=== PATIENT | female | born 1965 | race Caucasian/White ===

== ENCOUNTER 2017-06-19 22:05 | Observation (INO) | payer OTHER ==
[~2017-06-19] VITALS: Ht 152.4 cm; Wt 58.0 kg
[2017-06-19 22:10] VITALS: BP 110/68; PULSE 78; RESP 20; O2SAT 100
--- NOTE | 2017-06-19 22:26 | PD ---
HPI Chief Complaint: Chest Pain Time Seen by Provider: 22:22 Travel History International Travel<30 days: No Contact w/Intl Traveler<30days: No History of Present Illness HPI 51-year-old female patient with previous history of anxiety, presents to the ER today because she started having intermittent episodes of sharp chest pains lasting a few minutes at a time and then going away this evening. She states it is substernal, without radiation. She denies any nausea, abdominal pain, vomiting, fevers, shortness of breath, or any other symptoms. She states it feels different than anxiety attacks that she has had before. Modifying Factors: None Associated Signs & Symptoms: Substernal chest pains, intermittent Risk Factors: None PFSH Social History Tobacco Use: No Allergies-Medications (Allergen,Severity, Reaction): Coded Allergies: Penicillins (Verified Adverse Reaction, Unknown, Nausea/Vomiting, 06/19/17) Review of Systems Except as stated in HPI: all other systems reviewed are Neg Physical Exam Narrative GENERAL: Well-developed middle-aged female patient currently in mild distress. Awake and oriented 3. SKIN: Focused skin assessment warm/dry. HEAD: Atraumatic. Normocephalic. EYES: Pupils equal and round. No scleral icterus. No injection or drainage. ENT: No nasal bleeding or discharge. Mucous membranes pink and moist. NECK: Trachea midline. No JVD. Supple. CARDIOVASCULAR: Regular rate and rhythm. No murmur appreciated. Pulses are present and equal bilaterally. RESPIRATORY: No accessory muscle use. Clear to auscultation. Breath sounds equal bilaterally. GASTROINTESTINAL: Abdomen soft, non-tender, nondistended. Hepatic and splenic margins not palpable. MUSCULOSKELETAL: No obvious deformities. No clubbing. No cyanosis. No edema. NEUROLOGICAL: Awake and alert. No obvious cranial nerve deficits. Motor grossly within normal limits. Normal speech. PSYCHIATRIC: Appropriate mood and affect; insight and judgment normal. Data Data Last Documented VS Vital Signs Date Time Temp Pulse Resp B/P (MAP) Pulse Ox O2 Delivery O2 Flow Rate FiO2 06/19/17 22:56 20 100 06/19/17 22:54 Nasal Cannula 2.00 06/19/17 22:54 70 107/63 (78) Orders Orders Electrocardiogram (06/19/17 22:22) Ckmb (Isoenzyme) Profile (06/19/17 22:22) Complete Blood Count With Diff (06/19/17 22:22) Comprehensive Metabolic Panel (06/19/17 22:22) D-Dimer (06/19/17 22:22) Magnesium (Mg) (06/19/17 22:22) Prothrombin Time / Inr (Pt) (06/19/17 22:22) Act Partial Throm Time (Ptt) (06/19/17 22:22) Troponin I (06/19/17 22:22) Ecg Monitoring (06/19/17 22:22) Bilateral Bp Monitoring (06/19/17 22:22) Iv Access Insert/Monitor (06/19/17 22:22) Oximetry (06/19/17 22:22) Oxygen Administration (06/19/17 22:22) Chest, Pa & Lat (06/19/17 22:22) Aspirin (Aspirin) (06/19/17 22:45) Nitroglycerin 2% Oint (Nitroglycerin 2% (06/19/17 22:45) CKMB (06/19/17 22:30) CKMB% (06/19/17 22:30) Ketorolac Inj (Toradol Inj) (06/19/17 23:15) Ondansetron Inj (Zofran Inj) (06/19/17 23:15) Morphine Inj (Morphine Inj) (06/19/17 23:15) Sodium Chlorid 0.9% 500 Ml Inj (Ns 500 M (06/19/17 23:15) Labs Laboratory Tests Test 06/19/17 22:30 White Blood Count 6.0 TH/MM3 Red Blood Count 4.23 MIL/MM3 Hemoglobin 12.6 GM/DL Hematocrit 37.8 % Mean Corpuscular Volume 89.5 FL Mean Corpuscular Hemoglobin 29.9 PG Mean Corpuscular Hemoglobin Concent 33.4 % Red Cell Distribution Width 12.7 % Platelet Count 210 TH/MM3 Mean Platelet Volume 8.6 FL Neutrophils (%) (Auto) 49.1 % Lymphocytes (%) (Auto) 39.8 % Monocytes (%) (Auto) 7.0 % Eosinophils (%) (Auto) 3.4 % Basophils (%) (Auto) 0.7 % Neutrophils # (Auto) 3.0 TH/MM3 Lymphocytes # (Auto) 2.4 TH/MM3 Monocytes # (Auto) 0.4 TH/MM3 Eosinophils # (Auto) 0.2 TH/MM3 Basophils # (Auto) 0.0 TH/MM3 CBC Comment DIFF FINAL Differential Comment Blood Urea Nitrogen 12 MG/DL Creatinine 0.67 MG/DL Random Glucose 89 MG/DL Total Protein 7.2 GM/DL Albumin 3.9 GM/DL Calcium Level 9.0 MG/DL Magnesium Level 1.9 MG/DL Alkaline Phosphatase 61 U/L Aspartate Amino Transf (AST/SGOT) 24 U/L Alanine Aminotransferase (ALT/SGPT) 17 U/L Total Bilirubin 0.4 MG/DL Sodium Level 139 MEQ/L Potassium Level 3.3 MEQ/L Chloride Level 103 MEQ/L Carbon Dioxide Level 27.3 MEQ/L Anion Gap 9 MEQ/L Estimat Glomerular Filtration Rate 93 ML/MIN Total Creatine Kinase 103 U/L Creatine Kinase MB 0.8 NG/ML Troponin I LESS THAN 0.02 NG/ML MDM Medical Decision Making Medical Screen Exam Complete: Yes Emergency Medical Condition: Yes Medical Record Reviewed: Yes Interpretation(s) EKG shows NSR, no ST elevation or depression, and no arrhythmias. No significant T-wave inversions. Laboratory Tests Test 06/19/17 22:30 Potassium Level 3.3 MEQ/L (3.5-5.1) Troponin I LESS THAN 0.02 NG/ML Last 24 hours Impressions Chest X-Ray 06/19/172 Signed Impressions: Service Date/Time: Monday, June 19, 2017 22:38 - CONCLUSION: No acute disease. Ronal Styles MD Differential Diagnosis Anxiety attack versus dysrhythmias versus ACS Narrative Course Patient was given aspirin and nitroglycerin in the ER. Chest x-ray and cardiac enzymes are negative. I did not see any signs of dysrhythmias while she was in the ER. Physician Communication Physician Communication Case is signed out at [address] Spangler pending d-dimer and reevaluation. Diagnosis Primary Impression: Atypical chest pain Lupe Cisneros MD Jun 19, 2017 22:26
[2017-06-19 22:35] LABS: BASOPHIL % 0.7 % (0.0-2.0); EOSINOPHIL # 0.2 TH/MM3 (0-0.4); EOSINOPHIL % 3.4 % (0.0-4.0); HEMATOCRIT 37.8 % (35.0-46.0); HEMOGLOBIN 12.6 GM/DL (11.6-15.3); LYMPH % 39.8 % (9.0-44.0); LYMPHOCYTE # 2.4 TH/MM3 (1.0-4.8); MEAN CELL VOLUME 89.5 FL (80.0-100.0); MEAN CORPUSCULAR HEMOGLOBIN 29.9 PG (27.0-34.0); MEAN CORPUSCULAR HGB CONC 33.4 % (32.0-36.0); MEAN PLATELET VOLUME 8.6 FL (7.0-11.0); MONOCYTE # 0.4 TH/MM3 (0-0.9); NEUT % 49.1 % (16.0-70.0); PLATELET COUNT 210 TH/MM3 (150-450); RED BLOOD COUNT 4.23 MIL/MM3 (4.00-5.30); RED CELL DISTRIBUTION WIDTH 12.7 % (11.6-17.2)
[2017-06-19 22:44] LABS: CHLORIDE 103 MEQ/L (98-107); SODIUM (NA) 139 MEQ/L (136-145)
[2017-06-19 22:45] VITALS: BP_SYST 107; BP_SYST 124; BP_DIAS 63; PULSE 66; RESP 20; O2SAT 99
[2017-06-19] MEDS ORDERED: ASPIRIN 325 MG TAB PO ONE (22:45)
[2017-06-19] MEDS ORDERED: NITROGLYCERIN 2% OINT 1 GM PACKET TOPICAL ONE (22:45)
[2017-06-19 22:48] LABS: ALBUMIN 3.9 GM/DL (3.4-5.0); BICARBONATE 27.3 MEQ/L (21.0-32.0); BLOOD UREA NITROGEN 12 MG/DL (7-18); GLUCOSE,RANDOM 89 MG/DL (74-106); MAGNESIUM 1.9 MG/DL (1.5-2.5)
[2017-06-19 22:51] LABS: ALT (GPT) 17 U/L (10-53); AST (GOT) 24 U/L (15-37); CREATININE 0.67 MG/DL (0.50-1.00); GLOMERULAR FILTRATION RATE 93 ML/MIN (>89)
[2017-06-19 22:53] LABS: TOTAL BILIRUBIN ADULT 0.4 MG/DL (0.2-1.0); TOTAL PROTEIN 7.2 GM/DL (6.4-8.2)
--- NOTE | 2017-06-19 22:53 | RADRPT ---
EXAM DATE/TIME: 06/19/2017 22:38 [facility] COMPARISON: No previous studies available for comparison. INDICATIONS : Chest pain. MEDICAL HISTORY : None. SURGICAL HISTORY : None. ENCOUNTER: Initial ACUITY: 1 day PAIN SCORE: 7/10 LOCATION: Bilateral chest FINDINGS: PA and lateral views of the chest demonstrate the lungs to be symmetrically aerated without evidence of mass, infiltrate or effusion. The cardiomediastinal contours are unremarkable. Osseous structure s are intact. CONCLUSION: No acute disease. Ronal Styles MD on June 19, 2017 at 22:50 Board Certified Radiologist. This report was verified electronically.
[2017-06-19 22:54] VITALS: BP 107/63; PULSE 70; RESP 20; O2SAT 99
[2017-06-19 22:54] LABS: ALKALINE PHOSPHATASE 61 U/L (45-117)
[2017-06-19 22:56] LABS: TROPONIN I LESS THAN 0.02 NG/ML (0.02-0.05)
--- NOTE | 2017-06-19 23:12 | PD ---
Physical Exam Date Seen by Provider: Jun 19, 2017 Time Seen by Provider: 23:10 Narrative accepted in transfer of care from Dr Cisneros GENERAL: Well-developed well-nourished female in obvious discomfort no respiratory distress SKIN: Warm and dry. HEAD: Normocephalic. EYES: No scleral icterus. No injection or drainage. NECK: Supple, trachea midline. No JVD or lymphadenopathy. CARDIOVASCULAR: Regular rate and rhythm without murmurs, gallops, or rubs. Chest wall: Mild tenderness to direct palpation however does not reproduce pain at presentation. RESPIRATORY: Breath sounds equal bilaterally. No accessory muscle use. Bilateral lung sounds clear to auscultation. GASTROINTESTINAL: Abdomen soft, non-tender, nondistended. MUSCULOSKELETAL: No cyanosis, or edema. Radial and dorsalis pedis pulses 2+ to palpation bilaterally. BACK: Nontender without obvious deformity. No CVA tenderness. Data Data Last Documented VS Vital Signs Date Time Temp Pulse Resp B/P (MAP) Pulse Ox O2 Delivery O2 Flow Rate FiO2 06/20/17 03:13 72 20 87/52 (64) 06/20/17 03:05 100 Nasal Cannula 2.00 Orders Orders Electrocardiogram (06/19/17 22:22) Ckmb (Isoenzyme) Profile (06/19/17 22:22) Complete Blood Count With Diff (06/19/17 22:22) Comprehensive Metabolic Panel (06/19/17 22:22) D-Dimer (06/19/17 22:22) Magnesium (Mg) (06/19/17 22:22) Prothrombin Time / Inr (Pt) (06/19/17 22:22) Act Partial Throm Time (Ptt) (06/19/17 22:22) Troponin I (06/19/17 22:22) Ecg Monitoring (06/19/17 22:22) Bilateral Bp Monitoring (06/19/17 22:22) Iv Access Insert/Monitor (06/19/17 22:22) Oximetry (06/19/17 22:22) Oxygen Administration (06/19/17 22:22) Chest, Pa & Lat (06/19/17 22:22) Aspirin (Aspirin) (06/19/17 22:45) Nitroglycerin 2% Oint (Nitroglycerin 2% (06/19/17 22:45) CKMB (06/19/17 22:30) CKMB% (06/19/17 22:30) Ketorolac Inj (Toradol Inj) (06/19/17 23:15) Ondansetron Inj (Zofran Inj) (06/19/17 23:15) Morphine Inj (Morphine Inj) (06/19/17 23:15) Sodium Chlorid 0.9% 500 Ml Inj (Ns 500 M (06/19/17 23:15) Ct Pulmonary Angiogram (06/20/17 ) Sodium Chlor 0.9% 1000 Ml Inj (Ns 1000 M (06/20/17 00:15) Hydromorphone Pf Inj (Dilaudid Pf Inj) (06/20/17 00:15) Iohexol 350 Inj (Omnipaque 350 Inj) (06/20/17 00:45) Troponin I (06/20/17 01:47) Ckmb (Isoenzyme) Profile (06/20/17 01:47) Electrocardiogram (06/20/17 ) Sodium Chlorid 0.9% 500 Ml Inj (Ns 500 M (06/20/17 02:30) Blood Culture (06/20/17 03:10) Sodium Chlor 0.9% 1000 Ml Inj (Ns 1000 M (06/20/17 03:15) Lactic Acid (06/20/17 03:10) Urinalysis - C+S If Indicated (06/20/17 03:10) Lipase (06/20/17 03:10) Place In Observation (06/20/17 03:31) Activity Bed Rest With Brp (06/20/17 03:31) Vital Signs (Adult) Q4H (06/20/17 03:31) Cardiac Rhythm .As Directed (06/20/17 03:31) Notify Dr: Other .PRN (06/20/17 03:31) Notify Dr. Parameters (06/20/17 03:31) Resp Oxygen Nasal Cannula (06/20/17 ) Ckmb (Isoenzyme) Profile (06/20/17 05:30) Troponin I (06/20/17 05:30) Electrocardiogram (06/20/17 05:30) ^ Obtain (06/20/17 03:31) Sodium Chlor 0.9% 1000 Ml Inj (Ns 1000 M (06/20/17 03:31) Sodium Chloride 0.9% Flush (Ns Flush) (06/20/17 03:45) Sodium Chloride 0.9% Flush (Ns Flush) (06/20/17 09:00) Acetaminophen (Tylenol) (06/20/17 03:45) Acetamin-Hydrocod 325-7.5 Mg ([place] 7.5 (06/20/17 03:45) Ondansetron Inj (Zofran Inj) (06/20/17 03:45) Aspirin (Aspirin) (06/20/17 09:00) Box Spring Maker / Telemetry AARON.Q8H (06/20/17 03:31) Admit Order (Ed Use Only) (06/20/17 ) Box Spring Maker / Telemetry AARON.Q8H (06/20/17 03:35) Diet Heart Healthy (06/20/17 Breakfast) Activity Oob With Assistance (06/20/17 03:35) Notify Dr: Other (06/20/17 03:35) Morphine Inj (Morphine Inj) (06/20/17 03:45) Labs Laboratory Tests Test 06/19/17 22:30 06/20/17 02:25 White Blood Count 6.0 TH/MM3 Red Blood Count 4.23 MIL/MM3 Hemoglobin 12.6 GM/DL Hematocrit 37.8 % Mean Corpuscular Volume 89.5 FL Mean Corpuscular Hemoglobin 29.9 PG Mean Corpuscular Hemoglobin Concent 33.4 % Red Cell Distribution Width 12.7 % Platelet Count 210 TH/MM3 Mean Platelet Volume 8.6 FL Neutrophils (%) (Auto) 49.1 % Lymphocytes (%) (Auto) 39.8 % Monocytes (%) (Auto) 7.0 % Eosinophils (%) (Auto) 3.4 % Basophils (%) (Auto) 0.7 % Neutrophils # (Auto) 3.0 TH/MM3 Lymphocytes # (Auto) 2.4 TH/MM3 Monocytes # (Auto) 0.4 TH/MM3 Eosinophils # (Auto) 0.2 TH/MM3 Basophils # (Auto) 0.0 TH/MM3 CBC Comment DIFF FINAL Differential Comment Prothrombin Time 10.4 SEC Prothromb Time International Ratio 1.0 RATIO Activated Partial Thromboplast Time 22.4 SEC D-Dimer Quantitative (PE/DVT) LESS THAN 0.19 MG/L FEU Blood Urea Nitrogen 12 MG/DL Creatinine 0.67 MG/DL Random Glucose 89 MG/DL Total Protein 7.2 GM/DL Albumin 3.9 GM/DL Calcium Level 9.0 MG/DL Magnesium Level 1.9 MG/DL Alkaline Phosphatase 61 U/L Aspartate Amino Transf (AST/SGOT) 24 U/L Alanine Aminotransferase (ALT/SGPT) 17 U/L Total Bilirubin 0.4 MG/DL Sodium Level 139 MEQ/L Potassium Level 3.3 MEQ/L Chloride Level 103 MEQ/L Carbon Dioxide Level 27.3 MEQ/L Anion Gap 9 MEQ/L Estimat Glomerular Filtration Rate 93 ML/MIN Total Creatine Kinase 103 U/L 82 U/L Creatine Kinase MB 0.8 NG/ML Troponin I LESS THAN 0.02 NG/ML LESS THAN 0.02 NG/ML MDM Medical Record Reviewed: Yes Supervised Visit with CHARMAINE: No Interpretation(s) Last Impressions CT Angiography 06/20/17 0000 Signed Impressions: Service Date/Time: Tuesday, June 20, 2017 00:33 - CONCLUSION: Normal examination. Marc Cross MD Chest X-Ray 06/19/172 Signed Impressions: Service Date/Time: Monday, June 19, 2017 22:38 - CONCLUSION: No acute disease. Ronal Styles MD CBC & BMP Diagram 06/19/17 22:30 Total Protein 7.2, Albumin 3.9, Calcium Level 9.0, Magnesium Level 1.9, Alkaline Phosphatase 61, Aspartate Amino Transf (AST/SGOT) 24, Alanine Aminotransferase (ALT/SGPT) 17, Total Bilirubin 0.4 Vital Signs Date Time Temp Pulse Resp B/P (MAP) Pulse Ox O2 Delivery O2 Flow Rate FiO2 06/20/17 03:13 72 20 87/52 (64) 06/20/17 03:05 68 20 79/55 (63) 100 Nasal Cannula 2.00 06/20/17 02:04 71 20 96/50 (65) 100 06/20/17 01:30 20 06/20/17 01:00 72 20 93/52 (66) 98 06/19/17 23:48 70 20 110/68 (82) 06/19/17 22:56 20 100 06/19/17 22:54 100 Nasal Cannula 2.00 06/19/17 22:54 70 20 107/63 (78) 99 Nasal Cannula 2.00 06/19/17 22:45 66 20 124/63 (83) 99 Nasal Cannula 2.00 107/63 (78) 06/19/17 22:10 78 20 110/68 (82) 100 Differential Diagnosis accepted in transfer of care from Dr Cisneros; please refer to her dictation Narrative Course accepted in transfer of care from Dr Cisneros; follow up labs and admission Patient complaining of 10/10 pain with respiratory effort patient administered 1 dose Toradol 30 mg IV Zofran 4 mg IV morphine sulfate 2 mg IV and a 500 cc bolus of normal saline Patient given additional liter of normal saline pain is improved Patient is uncertain if she wants to stay offered observation admission or to sign out AMA patient is agreeable to second set of cardiac enzymes and EKG Troponin I CK and repeat EKG found in normal range Patient states that she is having recurrent pain and would like to be admitted unclear etiology of pleuritic pain possible viral source pleurisy no rub and soft nontender abdomen without guarding or rebound Lipase added lactic acid added patient's case discussed with medicine nitroglycerin discontinued as additional bolus of normal saline administered Discussed with Dr. Colindres will admit patient for chest pain/atypical chest pain and intractable pain of uncertain etiology Physician Communication Physician Communication discussed with Dr Colindres Diagnosis Primary Impression: Atypical chest pain Additional Impression: Intractable pain Admitting Information Admitting Physician Requests: Observation Ruth Spangler MD Jun 19, 2017 23:12
[2017-06-19] MEDS ORDERED: MORPHINE SULFATE 2 MG/ML SYRINGE IV PUSH ONE (23:15)
[2017-06-19] MEDS ORDERED: SODIUM CHLORID 0.9% 500 ML INJ 500 ML IV ONE (23:15)
[2017-06-19] MEDS ORDERED: KETOROLAC TROMETHAMINE 30 MG/ML (IVP) VIAL IV PUSH ONE (23:15)
[2017-06-19] MEDS ORDERED: ONDANSETRON HCL 4 MG/2 ML VIAL IV PUSH ONE (23:15)
[2017-06-19 23:28] LABS: PROTHROMBIN TIME - PATIENT 10.4 SEC (9.8-11.6)
[2017-06-19 23:35] LABS: D-DIMER LESS THAN 0.19 MG/L FEU (0.00-0.50)
[2017-06-19] MEDS ORDERED: ESCI10TA PO (23:35)
[2017-06-19 23:48] VITALS: BP 110/68; PULSE 70; RESP 20
[2017-06-20] VITALS (12 sets, daily range): BP systolic 76–98; BP diastolic 41–67; PULSE 65–83; RESP 12–20; TEMP 98.1; O2SAT 95–100
[2017-06-20] MEDS ORDERED: HYDROmorphone HCL PF 2 MG/ML VIAL IV PUSH ONE (00:15)
[2017-06-20] MEDS ORDERED: SODIUM CHLOR 0.9% 1000 ML INJ 1,000 ML IV ONE ×2 (00:15→03:15)
[2017-06-20] MEDS ORDERED: IOHEXOL 350 MG/ML 10 ML VIAL (for RAD DIAG) IVCONTRAST ONE (00:45)
--- NOTE | 2017-06-20 01:04 | RADRPT ---
EXAM DATE/TIME: 06/20/2017 00:33 [facility] COMPARISON: No previous studies available for comparison. INDICATIONS : Chest pain. Shortness of breath. IV CONTRAST: 75 cc Omnipaque 350 (iohexol) IV RADIATION DOSE: 6.71 CTDIvol (mGy) MEDICAL HISTORY : None SURGICAL HISTORY : None. ENCOUNTER: Initial ACUITY: 1 day PAIN SCALE: 8/10 LOCATION: Bilateral chest TECHNIQUE: Volumetric scanning of the chest was performed using a pulmonary embolism protocol MIP images were re constructed. Using automated exposure control and adjustment of the mA and/or kV according to patien t size, radiation dose was kept as low as reasonably achievable to obtain optimal diagnostic quality images. DICOM format image data is available electronically for review and comparison. Follow-up recommendations for detected pulmonary nodules are based at a minimum on nodule size and pa tient risk factors according to Fleischner Society Guidelines. FINDINGS: PULMONARY ARTERIES: No filling defects are seen in the pulmonary arteries through the segmental level. LUNGS: There is no consolidation or pneumothorax . No concerning pulmonary nodule is visualized. PLEURAE: There is no pleural thickening or pleural effusion. MEDIASTINUM: There is good visualization of the great vessels of the middle mediastinum. No evidence of mediastin al or hilar adenopathy/mass. MUSCULOSKELETAL: Within normal limits for patient age. MISCELLANEOUS: The visualized upper abdominal organs demonstrate no acute abnormality. CONCLUSION: Normal examination. Marc Cross MD on June 20, 2017 at 0:58 Board Certified Radiologist. This report was verified electronically.
[2017-06-20] MEDS ORDERED: SODIUM CHLORID 0.9% 500 ML INJ 500 ML IV ONE (02:30)
[2017-06-20 02:56] LABS: TROPONIN I LESS THAN 0.02 NG/ML (0.02-0.05)
[2017-06-20] MEDS ORDERED: SODIUM CHLOR 0.9% 1000 ML INJ 1,000 ML IV SCH (03:31)
[2017-06-20] MEDS ORDERED: ONDANSETRON HCL 4 MG/2 ML VIAL IV PUSH PRN (03:45)
[2017-06-20] MEDS ORDERED: MORPHINE SULFATE 2 MG/ML SYRINGE IV PUSH PRN (03:45)
[2017-06-20] MEDS ORDERED: ACETAMINOPHEN 500 MG CPLT PO PRN (03:45)
[2017-06-20] MEDS ORDERED: ACETAMINOPHEN/HYDROcodone 325 MG/7.5 MG TAB PO PRN (03:45)
[2017-06-20] MEDS ORDERED: SODIUM CHLORIDE 0.9% FLUSH 10 ML FLUSH IV FLUSH PRN (03:45)
[2017-06-20 04:10] LABS: BILIRUBIN, URINE NEG (NEG); BLOOD, URINE NEG (NEG); GLUCOSE,URINE NEG (NEG); KETONE, URINE NEG (NEG); NITRITE,URINE NEG (NEG); PH, URINE 6.5 (5.0-8.5); URINE COLOR YELLOW (YELLW/STRAW); URINE LEUKOCYTE ESTERASE NEG (NEG)
[2017-06-20 04:17] LABS: MUCUS URINE OCC /lpf (OCC); SQUAMOUS EPITHELIAL CELL URINE 0-5 /hpf (0-5)
[2017-06-20 04:18] LABS: WBC, URINE 0-2 /hpf (0-5)
[2017-06-20 04:19] LABS: AMORPHOUS SEDIMENT, URINE SMALL; BACTERIA, URINE OCC /hpf
[2017-06-20 06:39] LABS: TROPONIN I LESS THAN 0.02 NG/ML (0.02-0.05)
--- NOTE | 2017-06-20 07:30 | EKG ---
Date Performed: 06/20/2017 Time Performed: 06:21:07 PTAGE: 51 years EKG: Sinus rhythm ARM LEADS REVERSED ATYPICAL ECG PREVIOUS TRACING : 06/20/2017 02.18 DOCTOR: Devan Quinteros Interpretating Date/Time 06/20/2017 07:30:00
--- NOTE | 2017-06-20 07:38 | EKG ---
Date Performed: 06/20/2017 Time Performed: 02:18:55 PTAGE: 51 years EKG: Sinus rhythm NORMAL ECG NO PREVIOUS TRACING DOCTOR: Devan Quinteros Interpretating Date/Time 06/20/2017 07:36:49
--- NOTE | 2017-06-20 08:47 | HHI.HP ---
[facility] No Primary Care Physician Admission Diagnosis Chest pain; intractable pain Diagnoses: (1) Atypical chest pain Diagnosis: Principal Chief Complaint: Chest pain Travel History International Travel<30 Days: No Contact w/Intl Traveler <30 Da: No Traveled to Known Affected Are: No History of Present Illness This is a 51-year-old female patient with a known medical history of anxiety who presented to the ED with complaints of chest pain. Patient states around 8 PM last evening after dinner she developed a midsternal chest pain that did not radiate up her neck back or arm. She characterizes the pain as pressure-like in nature and intermittent coming and going without any known alleviating factors. Patient states that the pain becomes worse with breathing or increase in activity. Patient does admit to associated nausea, denies any associated vomiting, shortness of breath or diaphoresis. She states she has never really had this type of pain before. She does have a history of anxiety attacks in the past. [place] Does not have a primary care physician in place at this time. She denies ever having a history of stress test in the past. Denies any recent illness including fever, chills, cough, abdominal pain, nausea, vomiting, diarrhea dysuria. Family history is not significant for any cardiovascular disease. Denies any history of or present use of tobacco. Patient does admit to increase in life stressors, states she has been moving all of her things in her new home and does admit to increase and anxiety and stress. Review of Systems Constitutional: DENIES: Fatigue, Fever, Weight loss Eyes: DENIES: Blurred vision, Diplopia Respiratory: DENIES: Cough, Sputum production, Shortness of breath Cardiovascular: COMPLAINS OF: Chest pain, DENIES: Palpitations, Lower Extremity Edema Gastrointestinal: DENIES: Abdominal pain Musculoskeletal: DENIES: Joint pain Hematologic/lymphatic: DENIES: Bruising Neurologic: DENIES: Abnormal gait Psychiatric: COMPLAINS OF: Anxiety Except as stated in HPI: all other systems reviewed are Neg Past Family Social History Past Medical History Anxiety Past Surgical History Breast augmentation 2010 Anterior C4 through C7 fusion in 2016. Reported Medications Active Reported Escitalopram (Escitalopram Oxalate) 10 Mg Tab 10 Mg PO DAILY Allergies: Coded Allergies: Penicillins (Verified Adverse Reaction, Unknown, Nausea/Vomiting, 06/19/17) Active Ordered Medications Current Medications Medications (Trade) Dose Ordered Sig/Marina Route Start Time Stop Time Status Last Admin Sodium Chloride 1,000 ml @ 75 mls/hr [id number] IV 06/20/17 03:31 06/20/17 05:32 (NS Flush) 2 ml UNSCH PRN IV FLUSH 06/20/17 03:45 (NS Flush) 2 ml BID IV FLUSH 06/20/17 09:00 (Tylenol) 500 mg Q4H PRN PO 06/20/17 03:45 ([place] 7.5-325 Mg) 1 tab Q4H PRN PO 06/20/17 03:45 (Morphine Inj) 2 mg Q4H PRN IV PUSH 06/20/17 03:45 (Zofran Inj) 4 mg Q6H PRN IV PUSH 06/20/17 03:45 06/20/17 03:57 (Aspirin) 325 mg DAILY PO 06/20/17 09:00 (Lexapro) 10 mg DAILY PO 06/20/17 10:30 Family History Denies any significant family medical history of cardiovascular disease. Social History Denies any current or previous tobacco use, alcohol use or illicit drug use. Physical Exam Vital Signs Vital Signs Date Time Temp Pulse Resp B/P (MAP) Pulse Ox O2 Delivery O2 Flow Rate FiO2 06/20/17 07:28 70 20 92/55 (67) 100 06/20/17 07:12 76 12 92/46 (61) 100 Room Air 06/20/17 07:00 71 16 76/41 (53) 100 Room Air 06/20/17 06:30 70 20 80/50 (60) 99 06/20/17 05:31 83 14 93/50 (64) 100 Room Air 06/20/17 05:00 72 18 82/55 (64) 99 06/20/17 05:00 95 21 06/20/17 04:00 66 20 90/55 (67) 98 06/20/17 03:13 72 20 87/52 (64) 06/20/17 03:05 68 20 79/55 (63) 100 Nasal Cannula 2.00 06/20/17 02:04 71 20 96/50 (65) 100 06/20/17 01:30 20 06/20/17 01:00 72 20 93/52 (66) 98 06/19/17 23:48 70 20 110/68 (82) 06/19/17 22:56 20 100 06/19/17 22:54 100 Nasal Cannula 2.00 06/19/17 22:54 70 20 107/63 (78) 99 Nasal Cannula 2.00 06/19/17 22:45 66 20 124/63 (83) 99 Nasal Cannula 2.00 107/63 (78) 06/19/17 22:10 78 20 110/68 (82) 100 Physical Exam GENERAL: Well-developed, well-nourished patient in NAD. SKIN: Warm and dry. No rash. HEAD: Normocephalic. Atraumatic. EYES: Pupils equal and round. No scleral icterus. No injection or drainage. ENT: No nasal bleeding or discharge. Mucous membranes pink and moist. NECK: Supple. Trachea midline. CARDIOVASCULAR: Regular rate and rhythm. S1, S2 noted. No murmur appreciated. No reproducible chest pain to palpation. RESPIRATORY: No accessory muscle use. Clear to auscultation. Breath sounds equal bilaterally. GASTROINTESTINAL: Abdomen soft, non-tender, nondistended. Normoactive bowel sounds x4. MUSCULOSKELETAL: No obvious deformities. Extremities without clubbing, cyanosis , or edema. NEUROLOGICAL: Awake and alert. No obvious cranial nerve deficits. Motor grossly within normal limits. 5/5 muscle strength in bilateral upper and lower extremities. Normal speech. PSYCHIATRIC: Appropriate mood and affect; insight and judgment normal. Laboratory Laboratory Tests Test 06/19/17 22:30 06/20/17 02:25 06/20/17 03:40 06/20/17 04:00 White Blood Count 6.0 Red Blood Count 4.23 Hemoglobin 12.6 Hematocrit 37.8 Mean Corpuscular Volume 89.5 Mean Corpuscular Hemoglobin 29.9 Mean Corpuscular Hemoglobin Concent 33.4 Red Cell Distribution Width 12.7 Platelet Count 210 Mean Platelet Volume 8.6 Neutrophils (%) (Auto) 49.1 Lymphocytes (%) (Auto) 39.8 Monocytes (%) (Auto) 7.0 Eosinophils (%) (Auto) 3.4 Basophils (%) (Auto) 0.7 Neutrophils # (Auto) 3.0 Lymphocytes # (Auto) 2.4 Monocytes # (Auto) 0.4 Eosinophils # (Auto) 0.2 Basophils # (Auto) 0.0 CBC Comment DIFF FINAL Differential Comment Prothrombin Time 10.4 Prothromb Time International Ratio 1.0 Activated Partial Thromboplast Time 22.4 D-Dimer Quantitative (PE/DVT) LESS THAN 0.19 Blood Urea Nitrogen 12 Creatinine 0.67 Random Glucose 89 Total Protein 7.2 Albumin 3.9 Calcium Level 9.0 Magnesium Level 1.9 Alkaline Phosphatase 61 Aspartate Amino Transf (AST/SGOT) 24 Alanine Aminotransferase (ALT/SGPT) 17 Total Bilirubin 0.4 Sodium Level 139 Potassium Level 3.3 Chloride Level 103 Carbon Dioxide Level 27.3 Anion Gap 9 Estimat Glomerular Filtration Rate 93 Total Creatine Kinase 103 82 Creatine Kinase MB 0.8 Troponin I LESS THAN 0.02 LESS THAN 0.02 Lactic Acid Level 1.4 Lipase 149 Urine Collection Type CLEAN CATCH Urine Color YELLOW Urine Turbidity CLEAR Urine pH 6.5 Urine Specific [place] 1.010 Urine Protein NEG Urine Glucose (UA) NEG Urine Ketones NEG Urine Occult Blood NEG Urine Nitrite NEG Urine Bilirubin NEG Urine Urobilinogen 0.2 Urine Leukocyte Esterase NEG Urine WBC 0-2 Urine Squamous Epithelial Cells 0-5 Urine Amorphous Sediment SMALL Urine Bacteria OCC Urine Mucus OCC Microscopic Urinalysis Comment CULT NOT INDICATED Test 06/20/17 06:12 Total Creatine Kinase 71 Troponin I LESS THAN 0.02 Date/Time Source Procedure Growth Status 06/20/17 03:40 Blood Peripheral Aerobic Blood Culture Pending Received 06/20/17 03:40 Blood Peripheral Anaerobic Blood Culture Pending Received Result Diagram: 06/19/17222906/19/172229 Imaging Last Impressions CT Angiography 06/20/17 0000 Signed Impressions: Service Date/Time: Tuesday, June 20, 2017 00:33 - CONCLUSION: Normal examination. Marc Cross MD Chest X-Ray 06/19/172221 Signed Impressions: Service Date/Time: Monday, June 19, 2017 22:38 - CONCLUSION: No acute disease. Ronal Styles MD Septic Shock Reassessment Septic shock perfusion: reassessment completed Caprini VTE Risk Assessment Caprini VTE Risk Assessment: No/Low Risk (score <= 1) Caprini Risk Assessment Model Point Value = 1 Point Value = 2 Point Value = 3 Point Value = 5 Age 41-60 Minor surgery BMI > 25 kg/m2 Swollen legs Varicose veins or History of unexplained or recurrent spontaneous Oral contraceptives or hormone replacement Sepsis (< 1 month) Serious lung disease, including pneumonia (< 1 month) Abnormal pulmonary function Acute myocardial infarction Congestive heart failure (< 1 month) History of inflammatory bowel disease Medical patient at bed rest Age 61-74 Arthroscopic surgery Major open surgery (> 45 min) Laparoscopic surgery (> 45 min) Malignancy Confined to bed (> 72 hours) Immobilizing plaster cast Central venous access Age >= 75 History of VTE Family history of VTE Factor V Leiden Prothrombin [id number] Lupus anticoagulant Anticardiolipin antibodies Elevated serum homocysteine Heparin-induced thrombocytopenia Other congenital or acquired thrombophilia Stroke (< 1 month) Elective arthroplasty Hip, pelvis, or leg fracture Acute spinal cord injury (< 1 month) Prophylaxis Regimen Total Risk Factor Score Risk Level Prophylaxis Regimen 0-1 Low Early ambulation 2 Moderate Order ONE of the following: *Sequential Compression Device (SCD) *Heparin 5000 units SQ BID 3-4 Higher Order ONE of the following medications: *Heparin 5000 units SQ TID *Enoxaparin/Lovenox 40 mg SQ daily (WT < 150 kg, CrCl > 30 mL/min) *Enoxaparin/Lovenox 30 mg SQ daily (WT < 150 kg, CrCl > 10-29 mL/min) *Enoxaparin/Lovenox 30 mg SQ BID (WT < 150 kg, CrCl > 30 mL/min) AND/OR *Sequential Compression Device (SCD) 5 or more Highest Order ONE of the following medications: *Heparin 5000 units SQ TID (Preferred with Epidurals) *Enoxaparin/Lovenox 40 mg SQ daily (WT < 150 kg, CrCl > 30 mL/min) *Enoxaparin/Lovenox 30 mg SQ daily (WT < 150 kg, CrCl > 10-29 mL/min) *Enoxaparin/Lovenox 30 mg SQ BID (WT < 150 kg, CrCl > 30 mL/min) AND *Sequential Compression Device (SCD) Assessment and Plan Problem List: (1) Atypical chest pain ICD Code: R07.89 - Other chest pain Status: Acute Plan: Patient has been admitted for observation in the chest pain center unit. Serial EKGs and serial troponins have been ordered for ruling out ACS purposes. Troponin trend flat. EKG reviewed showing sinus rhythm, no arrhythmias noted, no ST changes to indicate any ischemia. Chest pain is coming and going with activity, has diminished since presentation. Patient was given 2 L NS bolus in ED. Morphine IV for pain. Aspirin 1 in ED. Nitroglycerin patch 1. This was removed due to low BP. BP is now stable at this time. Patient is lying in bed on room air. Vital signs are stable. CBC and BMP reviewed and essentially unremarkable. Hypokalemia noted, replaced with p.o. potassium. UA reviewed unremarkable. Chest x-ray reviewed showing no acute cardiopulmonary disease. CT angiography reviewed showing no acute disease, normal examination. Patient underwent a cardiac treadmill stress test to rule out any further ischemia. Images were sent over and reviewed by audit clerks supervisor on-call, Dr. Coughlin, who reports no ischemia. She will be allowed to eat. Denies any nausea or vomiting at this time. Patient will be discharged home with recommendations to establish with PCP and follow-up outpatient. Patient is refusing Maalox for possible stress ulcer or reflux as well as any NSAID for possible musculoskeletal cause. Patient is adamant to leave due needing to tend to matters at home. Patient is encouraged to return to the ED if symptoms persist or worsen. Patient is agreeable and stable at this time. Discussed Condition With Patient. Jesika Navarro Jun 20, 2017 08:47
[2017-06-20] MEDS ORDERED: ASPIRIN 325 MG TAB PO SCH (09:00)
[2017-06-20] MEDS ORDERED: SODIUM CHLORIDE 0.9% FLUSH 10 ML FLUSH IV FLUSH SCH (09:00)
--- NOTE | 2017-06-20 10:08 | HHI.DCPOC ---
Discharge Care Plan Diagnosis: (1) Atypical chest pain Goals to Promote Your Health * To prevent worsening of your condition and complications * To maintain your health at the optimal level Directions to Meet Your Goals Take your medications as prescribed Follow your dietary instruction Follow activity as directed Keep your appointments as scheduled Take your immunizations and boosters as scheduled If your symptoms worsen call your PCP, if no PCP go to Urgent Care Center or Emergency Room Smoking is Dangerous to Your Health. Avoid second hand smoke Call the 24-hour hour crisis hotline for domestic abuse at Jesika Navarro Jun 20, 2017 10:08
[2017-06-20] MEDS ORDERED: ALUMINUM/MAGNESIUM/SIMETH 30 ML CUP PO ONE (10:15)
[2017-06-20] MEDS ORDERED: KETOROLAC TROMETHAMINE 30 MG/ML (IVP) VIAL IV PUSH ONE (10:15)
[2017-06-20] MEDS ORDERED: ESCITALOPRAM OXALATE 10 MG TAB PO SCH (10:30)
[2017-06-20] MEDS ORDERED: NAPR500T2 PO (10:45)
--- NOTE | 2017-06-20 12:51 | TR ---
Date Performed: 06/20/2017 Time Performed: 09:30:57 DOCTOR: Franki Coughlin DRUG LIST: CLINICAL HISTORY: REASON FOR TEST: Chest pain REASON FOR ENDING: OBSERVATION: CONCLUSION: Sreekanth protocol attempted and test stopped secondary to leg fatigue. Hit 92% target h eart rate. No reproducible chest discomfort. Good exercise tolerance. Recovery quick and unremarkable . Good BP response.Maximum [id number] Max HR Achieved=78.0% % Target HR Achieved=92.0% Maximum YV=372/70 COMMENTS: Patient exercised using the Sreekanth protocol. No electrocardiographic changes were seen to suggest ischemia. Hemodynamic response to exercise was normal. No significant arrhythmia was prese nt.
--- NOTE | 2017-06-20 13:11 | EKG ---
Date Performed: 06/19/2017 Time Performed: 22:10:22 PTAGE: 51 years EKG: Sinus rhythm NORMAL ECG NO PREVIOUS TRACING DOCTOR: Devan Quinteros Interpretating Date/Time 06/20/2017 13:08:36
== END 2017-06-20 11:01 | disposition home or self-care (01) ==
LOC: PHED 22:05 → PHEDA 06-20 03:37 → PH3B 06-20 07:31
PROVIDERS: ADMIT Hospitalist; ATTEND Hospitalist
DX: R07.89 Other chest pain (principal); E87.6 Hypokalemia; R11.0 Nausea; F41.1 Generalized anxiety disorder
CPT/HCPCS: 71046; 71275; 80053; 81001; 82550; 82552; 83605; 83690; 83735; 84484; 85025; 85379; 85610; 85730; 87040; 93005; 93017; 96361; 96374; 96375; 96376; 99285; G0378; J1170; J1885; J2270; J2405; J7030; J7040; Q9967